=== PATIENT | male | born 1985 | race Hispanic/Latino ===

== ENCOUNTER 2018-09-04 08:42 | Emergency (ER) | payer OTHER ==
[2018-09-04 08:47] VITALS: PULSE 66; TEMP 97.2; O2SAT 98
[2018-09-04] MEDS ORDERED: Lidocaine 1.5%-Epinephrine 1:200,000 5 ML AMP IJ ONE (09:17)
[2018-09-04] MEDS ORDERED: Lidocaine 1% w Epi 1:100,000 Inj ONE (09:19)
--- NOTE | 2018-09-04 09:53 | ED PDOC ---
HPI: Head Injury Time Seen by Provider: 09/04/18 09:11 Chief Complaint (Nursing): Abnormal Skin Integrity Chief Complaint (Provider): Abnormal Skin Integrity History Per: Patient History/Exam Limitations: no limitations Onset/Duration Of Symptoms: Hrs (x1) Additional Complaint(s): 33 y/o male with no pmhx presents to ER for evaluation of a laceration after slipping, falling and hitting left eyebrow one hour [employer]. Patient denies any loss of consciousness, dizziness or headache. PMD: None provided Past Medical History Reviewed: Historical Data, Nursing Documentation, Vital Signs Vital Signs: Last Vital Signs Temp 97.2 F L 09/04/18 08:46 Pulse 66 09/04/18 08:46 Resp 15 09/04/18 08:46 BP 121/69 09/04/18 08:46 Pulse Ox 98 09/04/18 08:46 - Medical History PMH: No Chronic Diseases - Surgical History Surgical History: No Surg Hx - Family History Family History: States: Unknown Family Hx - Social History Current smoker - smoking cessation education provided: No Alcohol: Social Drugs: Denies - Allergies Allergies/Adverse Reactions: Allergies Allergy/AdvReac Type Severity Reaction Status Date / Time No Known Allergies Allergy Verified 09/04/18 08:51 Review of Systems ROS Statement: Except As Marked, All Systems Reviewed And Found Negative Skin: Positive for: Other (Laceration to left eyebrow) Neurological: Negative for: Headache, Dizziness Physical Exam - Reviewed Nursing Documentation Reviewed: Yes Vital Signs Reviewed: Yes - Physical Exam Appears: Positive for: Non-toxic, No Acute Distress Head Exam: Positive for: ATRAUMATIC, NORMOCEPHALIC Skin: Positive for: Normal Color, Warm, Dry Eye Exam: Positive for: EOMI, PERRL, Other (2 cm verical laceration above and through left eyebrow. No palpable fracture.) Neck: Positive for: Normal, Painless ROM, Supple Neurologic/Psych: Positive for: Alert, Oriented (x3). Negative for: Motor/Sensory Deficits - ECG O2 Sat by Pulse Oximetry: 98 (RA) Pulse Ox Interpretation: Normal Medical Decision Making Medical Decision Makin --Laceration repair procedure performed Scribe Attestation: Documented by Delfina Henderson, acting as a scribe for Flo Zhang MD. Provider Scribe Attestation: All medical record entries made by the Scribe were at my direction and personally dictated by me. I have reviewed the chart and agree that the record accurately reflects my personal performance of the history, physical exam, medical decision making, and the department course for this patient. I have also personally directed, reviewed, and agree with the discharge instructions and disposition. Procedures - Time-Out Type of Procedure: Laceration Repair Site of Procedure: Left eyebrow - Laceration/Wound Repair Left Face Wound Length (cm): 2 Irrigated w/ Saline (ccs): 3 Anesthesia: Lidocaine w/ Epi (1% Lidocaine) Wound Repaired With: Sutures Suture Size/Type: 6:0, 5:0, proline (3 of 5:0), nylon (4 of 6:0) Number of Sutures: 7 Wound Complexity: Simple Disposition - Clinical Impression Clinical Impression: Laceration - Patient ED Disposition Is Patient to be Admitted: No Counseled Patient/Family Regarding: Diagnosis, Need For Followup - Disposition Referrals: [facility] [Outside] Disposition: Routine/Home Disposition Time: 09:50 Condition: FAIR Additional Instructions: Wound check 2 days. Suture removal 5 days Instructions: Wound Care (DC), Laceration Repair With Stitches (DC) Forms: [employer] (Gabonese)
[2018-09-04 10:05] VITALS: BP 120/70; RESP 16
== END 2018-09-04 10:03 | disposition home or self-care (01) ==
LOC: H.ER 08:42
DX: S01.81XA Laceration without foreign body of other part of head, initial encounter (principal); S09.90XA Unspecified injury of head, initial encounter; W01.0XXA Fall on same level from slipping, tripping and stumbling without subsequent striking against object, initial encounter; Y92.89 Other specified places as the place of occurrence of the external cause